=== PATIENT | male | born 1940 | race Caucasian/White ===

== ENCOUNTER 2016-11-04 05:46 | Inpatient (IN) | payer OTHER ==
[~2016-11-04] VITALS: Ht 180.3 cm; Wt 126.6 kg
[~2016-11-04 05:46] MED LIST: COMBIVENT RESPIM4 GM IH; HYZAAR 100-21 TABLET PO; LASIX20 MG PO; LOPID600 MG PO; LOPRESSOR25 MG PO; NEURONTIN300 MG PO; POTASSIUM CHLO10 ME3 PO; SINGULAIR10 MG PO; VESICARE10 MG PO; VITAMIN B122500 MCG PO; XARELTO20 MG PO
[2016-11-04 06:28] VITALS: BP 156/83
[2016-11-04 09:57] LABS: HEMATOCRIT 39.5 % (38.0-50.0); MCV 87.6 FL (86-99)
[2016-11-04 13:37] VITALS: BP 146/82
[2016-11-04 15:40] VITALS: BP 132/74
[2016-11-04 17:27] VITALS: BP 121/76
[2016-11-04 20:05] VITALS: BP 141/81
[2016-11-04 22:17] VITALS: BP 121/66
[2016-11-05 00:12] VITALS: BP 128/64
[2016-11-05 03:53] VITALS: BP 109/53
[2016-11-05 05:34] LABS: HEMATOCRIT 36.3 % (38.0-50.0); MCV 88.8 FL (86-99)
[2016-11-05 08:16] VITALS: BP 113/61
[2016-11-05] MEDS ORDERED: BENADRYL25 MG PO (09:39)
[2016-11-05] MEDS ORDERED: BISACODYL5 MG PO (09:41)
[2016-11-05] MEDS ORDERED: TYLENOL REGULA325 MG PO (09:41)
[2016-11-05] MEDS ORDERED: OXYCODONE HCL5 MG PO (09:42)
[2016-11-05 12:12] VITALS: BP 136/65
== END 2016-11-05 15:07 | disposition home health service (06) | DRG 470 ==
LOC: 3WEST 05:46 → 2SOUTH 05:46 → 3WEST 13:32 → 2SOUTH 15:07 → 3WEST 11-05 15:07
PROVIDERS: Orthopaedic Surgery
PROC: 0SR904A Replacement of Right Hip Joint with Ceramic on Polyethylene Synthetic Substitute, Uncemented, Open Approach (ICD-10-PCS; principal; 2016-11-04)
DX: M16.11 Unilateral primary osteoarthritis, right hip (principal); I10 Essential (primary) hypertension; I48.2 Chronic atrial fibrillation; E78.2 Mixed hyperlipidemia; J45.909 Unspecified asthma, uncomplicated; G47.33 Obstructive sleep apnea (adult) (pediatric); E66.01 Morbid (severe) obesity due to excess calories; Z68.41 Body mass index [BMI] 40.0-44.9, adult; Z23 Encounter for immunization; Z87.891 Personal history of nicotine dependence; Z79.01 Long term (current) use of anticoagulants
CPT/HCPCS: 85014; 85018; J0131; J0690; J1100; J7050

== ENCOUNTER → 2017-06-12 | Outpatient (CLI) | payer MEDICARE, OTHER ==
[~2017-06-12] MED LIST changes: +BENADRYL25 MG PO; +BISACODYL5 MG PO; +OXYCODONE HCL5 MG PO; +TYLENOL REGULA325 MG PO
== END | disposition home or self-care (01) ==
LOC: CDC 11:39
DX: R00.1 Bradycardia, unspecified (principal); J98.4 Other disorders of lung; I45.4 Nonspecific intraventricular block; R94.31 Abnormal electrocardiogram [ECG] [EKG]; R14.3 Flatulence; Z86.010 Personal history of colon polyps; Z80.0 Family history of malignant neoplasm of digestive organs
CPT/HCPCS: 93000